=== PATIENT | female | born 1975 ===

== ENCOUNTER 2021-06-27 10:36 | Day surgery (SDCO) | payer OTHER ==
--- NOTE | 2021-06-21 08:53 | NUR ---
PT REFUSED TO HAVE INTERPERTER FOR PHONE CONVERSATION SHE REQUESTED WE TEXT HER WITH THE UP COMING DATE AND TIME OF HER [facility] WILL EMAIL HER THE NEEDED INFORMATION
[~2021-06-27] VITALS: Ht 142.2 cm; Wt 52.2 kg
[~2021-06-27 10:36] MED LIST: VITAMIN D310 MC3 PO
[2021-06-27 10:56] LABS: HCG (URINE) SCREEN NEGATIVE (NEGATIVE)
[2021-06-27 11:30] LABS: HCT 37.9 % (37.0-47.0); HGB 12.5 g/dl (12.5-16.0); MCH 27.4 pg (25.0-31.0); MCV 82.9 fL (78.0-100.0); MPV 12.1 fL (6.0-9.5); RBC 4.57 M/uL (4.20-5.40); RDW 13.2 % (11.5-14.0); WBC 4.3 K/uL (4.0-10.5)
[2021-06-28 04:50] LABS: BASOPHIL 0.2 % (0-2); EOSINOPHIL 0 % (0-5); HCT 33.9 % (37.0-47.0); HGB 11.1 g/dl (12.5-16.0); LYMPHOCYTE 17.4 % (15-48); MCH 27.1 pg (25.0-31.0); MCHC 32.7 g/dL (32.0-36.0); MCV 82.9 fL (78.0-100.0); MPV 11.8 fL (6.0-9.5); NEUTROPHIL 76.2 % (41-80); NRBC 0; PLT 195 K/uL (150-400); RBC 4.09 M/uL (4.20-5.40); RDW 13.1 % (11.5-14.0)
[2021-06-28 04:52] LABS: WBC 8.1 K/uL (4.0-10.5)
[2021-06-28] MEDS ORDERED: MOTRIN600 MG PO (08:35)
[2021-06-28] MEDS ORDERED: COLACE100 MG PO (08:35)
[2021-06-28] MEDS ORDERED: PERCOCET 5-3251 EACH PO (08:46)
[2021-06-28 09:53] LABS: BILIRUBIN NEGATIVE (NEGATIVE); BLOOD 2+ Ery/uL (NEGATIVE); CLARITY CLEAR (CLEAR); COLOR YELLOW (YELLOW); GLUCOSE (U) NORMAL (NORMAL); LEUKOCYTES TRACE Leu/uL (NEGATIVE); NITRITE NEGATIVE (NEGATIVE); PROTEIN NEGATIVE (NEGATIVE); UROBILINOGEN 0.2 mg/dL (0.2-1.0); pH 6.5 (5.0-9.0)
[2021-06-28 10:01] LABS: URINARY WBC RARE
[2021-06-28 10:02] LABS: SQUAMOUS EPITHELIAL CELLS RARE
== END 2021-06-28 11:37 | disposition home or self-care (01) ==
LOC: FAS 10:36 → FMS 14:55
PROVIDERS: ADMIT Obstetrics & Gynecology
DX: D25.0 Submucous leiomyoma of uterus (principal); N80.0 Endometriosis of uterus; N92.1 Excessive and frequent menstruation with irregular cycle; N94.6 Dysmenorrhea, unspecified; D64.9 Anemia, unspecified; Z98.51 Tubal ligation status; Z68.25 Body mass index [BMI] 25.0-25.9, adult
CPT/HCPCS: 36415; 81001; 84703; 85025; 86850; 86900; 86901; G0378; J0690; J1100; J1885; J2250; J2405; J2704; J2710; J3010; J7120; J7121